=== PATIENT | female | born 1980 | race Caucasian/White ===

== ENCOUNTER 2017-01-13 14:02 | Emergency (ER) | payer BC ==
[~2017-01-13] VITALS: Ht 160 cm; Wt 65.5 kg
[~2017-01-13 14:02] MED LIST: DICLOFENAC SODI25 MG PO; METHOCARBAMOL500 MG PO; Motrin PO; Percocet 5/325,Endoc PO; TOPIRAGEN25 MG PO
[2017-01-13] MEDS ORDERED: BACLOFEN10 MG PO (14:29)
[2017-01-13] MEDS ORDERED: NAMENDA XR28 MG PO (14:29)
[2017-01-13] MEDS ORDERED: NEURONTIN300 MG PO (14:30)
[2017-01-13] MEDS ORDERED: LODINE300 MG PO (14:30)
[2017-01-13] MEDS ORDERED: LORTAB 5-325 M1 EACH PO (14:53)
[2017-01-13] MEDS ORDERED: LIDODERM 5% P1 PATCH TD (14:53)
[2017-01-13 15:17] VITALS: BP 127/81
== END 2017-01-13 15:18 | disposition home or self-care (01) ==
LOC: EXP 14:02 → EME 14:02 → EXP 15:18
DX: M54.6 Pain in thoracic spine (principal); M54.5 Low back pain; G89.29 Other chronic pain; X50.0XXA Overexertion from strenuous movement or load, initial encounter; Z87.891 Personal history of nicotine dependence
CPT/HCPCS: 99281; 99284

== ENCOUNTER 2017-06-29 00:28 | Emergency (ER) | payer BC ==
[~2017-06-29] VITALS: Ht 160 cm; Wt 63.7 kg
[~2017-06-29 00:28] MED LIST changes: +BACLOFEN10 MG PO; +LIDODERM 5% P1 PATCH TD; +LODINE300 MG PO; +LORTAB 5-325 M1 EACH PO; +NAMENDA XR28 MG PO; +NEURONTIN300 MG PO
[2017-06-29 01:13] LABS: HEMATOCRIT 40.6 % (36.0-46.0); MCH 28.5 PG (29.0-34.0); MCHC 34.5 G/DL (30.0-36.0); MCV 82.7 FL (83-99); PLATELET COUNT 288 K/uL (156-360); RBC DIS.WIDTH-CV 12.7 % (11.8-14.6); RBC DIS.WIDTH-SD 38.3 % (39-53); RED BLOOD COUNT 4.91 M/uL (3.80-5.20); WHITE BLOOD COUNT 13.2 K/uL (4.1-10.2)
[2017-06-29 01:19] LABS: ALBUMIN 4.7 g/dL (3.2-4.8)
[2017-06-29 01:20] LABS: CHLORIDE 105 mEq/L (99-109); POTASSIUM 3.6 mEq/L (3.7-5.4); SODIUM 140 mEq/L (136-147)
[2017-06-29 01:22] LABS: GLUCOSE 145 mg/dL (70-99); TOTAL PROTEIN 7.9 g/dL (6.4-8.3)
[2017-06-29 01:24] LABS: TOTAL BILIRUBIN 0.7 mg/dL (0.0-1.0)
[2017-06-29 01:25] LABS: ALKALINE PHOSPHATASE 63 IU/L (3-129)
[2017-06-29 01:26] LABS: GFR ESTIMATE (CALCULATED) > 59 mL/min/
[2017-06-29 01:27] LABS: AST (GOT) 19 IU/L (2-34); UREA NITROGEN (BUN) 24 mg/dL (9-23)
[2017-06-29 01:28] LABS: ALT (GPT) 13 IU/L (3-49)
[2017-06-29 01:35] LABS: QUANTITATIVE HCG < 4.0 MIU/ML
[2017-06-29 01:56] LABS: APPEARANCE SL.HAZY ((CLEAR)); BILIRUBIN SMALL; BLOOD NEGATIVE; COLOR AMBER ((YELLOW)); GLUCOSE (STRIP) NEGATIVE; KETONES NEGATIVE; LEUKOCYTES TRACE; NITRITE NEGATIVE; PROTEIN (STRIP) 100; SPECIFIC GRAVITY 1.038 (1.000-1.030)
[2017-06-29 02:18] LABS: BACTERIA 3+ /HPF; EPITHELIAL CELLS 1+ /HPF; MUCUS 3+ /LPF; RED BLOOD CELLS 0-5 /HPF (0-5); UCUL ADDED? YES
[2017-06-29] MEDS ORDERED: MACROBID100 MG PO (03:56)
[2017-06-29 04:13] VITALS: BP 110/58
[2017-06-29 06:58] LABS: HEMOGLOBIN A1c (GLYCOHEMOGLOB) 5.3 % HGB (Below 5.7)
== END 2017-06-29 04:14 | disposition home or self-care (01) ==
LOC: EME 00:28
PROVIDERS: Physician Assistant
DX: E16.2 Hypoglycemia, unspecified (principal); N39.0 Urinary tract infection, site not specified; Z83.3 Family history of diabetes mellitus; G89.29 Other chronic pain; M54.9 Dorsalgia, unspecified; Z87.891 Personal history of nicotine dependence
CPT/HCPCS: 80053; 81003; 82948; 83036; 84702; 85027; 87077; 87086; 93005; 99281; 99285; J7030